=== PATIENT | male | born 2000 | race Caucasian/White ===

== ENCOUNTER 2022-02-04 18:59 | Emergency (ER) | payer SELFPAY ==
[2022-02-04 19:06] VITALS: BP 140/64; PULSE 57; RESP 20; TEMP 36.7; O2SAT 99
--- NOTE | 2022-02-04 19:46 | PC.NURSE ---
patient left waiting room prior to being seen stating that wait is too long
== END 2022-02-04 19:51 | disposition left against medical advice (07) ==
DX: S61.012A Laceration without foreign body of left thumb without damage to nail, initial encounter (principal); W26.0XXA Contact with knife, initial encounter
CPT/HCPCS: 99199

== ENCOUNTER 2022-05-23 08:26 | Emergency (ER) | payer BC, SELFPAY ==
[2022-05-23 08:38] VITALS: BP 127/96; PULSE 83; RESP 16; TEMP 36.3; O2SAT 100
--- NOTE | 2022-05-23 08:42 | ED.NAVMDI ---
HPI - Nausea/Vomiting/Diarrhea General Chief complaint: Nausea/Vomiting/Diarrhea Stated complaint: fever, nausea Time Seen by Provider: 05/23/22 08:44 History of Present Illness HPI Narrative: Flaquito Tsang is a 22-year-old male with no PMH who comes here after having diarrhea and low-grade fever yesterday and missing work he states he is feeling better today, came in just to be checked out Related Data Allergies Allergy/AdvReac Type Severity Reaction Status Date / Time No Known Allergies Allergy Verified 05/23/22 08:47 Review of Systems Review of Systems: CONSTITUTIONAL: Low-grade fever yesterday, chills, sweats. EYES: Denies visual changes, redness, discharge. ENT: Denies rhinorrhea, congestion, sore throat, otalgia. CARDIOVASCULAR: Denies chest pain, palpitations, edema. RESPIRATORY: Denies dyspnea, wheezing, cough GASTROINTESTINAL: Denies abdominal pain, nausea, vomiting, had diarrhea yesterday. GENITOURINARY: Denies dysuria, hematuria, abnormal discharge SKIN: Denies rash or itching. NEUROLOGIC: Denies numbness, or focal weakness. PSYCHIATRIC: Denies anxiety or depression. [facility] Social History Social History (Updated 05/23/22 @ 08:51 by Sheila Love CNP) Smoking status: Never smoker Alcohol intake: current Comments At time of signature, I agree with nursing past medical, surgical, social and family history. There is no relevant family history pertinent to the presenting complaint. Exam Narrative: GENERAL: This is a well-nourished, well-developed patient, in no distress. HEAD: normocephalic, atraumatic. EYES: P Sclera clear/white. Vision is grossly intact. EARS: External ears normal, auditory canals clear and without drainage, TMs normal without perforation NOSE: No nasal discharge, nares without redness, no rhinorrhea. THROAT: Mucous membranes moist, posterior pharynx mild erythema NECK: Neck supple, non-tender CARDIOVASCULAR: Regular rate and rhythm without murmurs, gallops, or rubs. RESPIRATORY: Clear to auscultation. Breath sounds equal bilaterally. No wheezes, rales, or rhonchi. GASTROINTESTINAL: Abdomen soft, nontender normal bowel sounds SKIN: warm, intact with no suspicious lesions or rash, good texture and turgor. NEURO: awake, alert, and oriented to person, place and time. There were no obvious focal neurologic abnormalities. Steady gait EXTREMITIES: Normal range of motion. BACK: Nontender without deformity Course Course Emergency Course: Patient here after having diarrhea and low-grade fever yesterday thinks he might of eaten something that was bad Hydrating states he does not have any pain abdomen is soft Continue to hydrate Level of Care: Express Care Visit Vital Signs Vital signs: Vital Signs Temperature 97.3 F L 05/23/22 08:38 Pulse Rate 83 05/23/22 08:38 Respiratory Rate 16 05/23/22 08:38 Blood Pressure 127/96 H 05/23/22 08:38 Pulse Oximetry 100 05/23/22 08:38 Oxygen Delivery Room Air 05/23/22 08:38 Temperature 97.3 F L 05/23/22 08:38 Pulse Rate 83 05/23/22 08:38 Respiratory Rate 16 05/23/22 08:38 Blood Pressure 127/96 H 05/23/22 08:38 Pulse Oximetry 100 05/23/22 08:38 Oxygen Delivery Room Air 05/23/22 08:38 MDM - Nausea/Vomiting/Diarrhea Differential Diagnosis Differential diagnosis: Likely traveler's diarrhea, food poisoning, gastroenteritis, dehydration and other Critical Care Time Critical Care Time Critical Care Time: No Discharge Plan Discharge Clinical Impression: Gastroenteritis Patient Disposition: Home, Self-Care Condition: Stable Instructions: Gastroenteritis (DC) Additional Instructions: Continue to hydrate well and rest Follow-up/Referrals: PHYSICIAN,[facility] [Primary Care Provider] - Stand Alone Forms: Work/School Release IP Time of Disposition: 08:53
== END 2022-05-23 08:57 | disposition home or self-care (01) ==
PROVIDERS: Emergency Provider Nurse Practitioner
DX: K52.9 Noninfective gastroenteritis and colitis, unspecified (principal)
CPT/HCPCS: 99211; G0463